=== PATIENT | female | born 1995 | race American Indian/Alaskan Native ===

== ENCOUNTER 2017-09-29 11:12 | Emergency (ER) | payer OTHER ==
[2017-09-29 11:32] VITALS: BMI 29.7
[2017-09-29 11:39] VITALS: RESP 18; O2SAT 98
[2017-09-29] MEDS ORDERED: Sodium Chloride 0.9% 1,000 ML IV STA (11:55)
--- NOTE | 2017-09-29 11:59 | ED PDOC ---
HPI: General Adult Time Seen by Provider: 09/29/17 11:49 Chief Complaint (Nursing): Dizziness/Lightheaded Chief Complaint (Provider): syncope History Per: Patient Additional Complaint(s): 22-year-old female presents to emergency department with abdominal pain and emesis x 1 last night. Patient woke up today and vomited again but was able to tolerate breakfast this AM. She states she was sitting on the bus this morning when she passed out. She did not fall to the ground or injure her head. She states after passing out the next thing she remembers was arriving at [place] [facility]. Upon arrival patient feels mildly dizzy, complains of mild abdominal pain with slight nausea. She has also had cough, congestion and body aches for the past couple of days. No associated chest pain, shortness of breath or dyspnea on exertion. PMD: in [place] Past Medical History Reviewed: Historical Data, Nursing Documentation, Vital Signs Vital Signs: Last Vital Signs Temp 97 F L 09/29/17 11:36 Pulse 71 09/29/17 11:36 Resp 18 09/29/17 11:36 BP Pulse Ox 98 09/29/17 12:12 - Medical History PMH: No Chronic Diseases - Surgical History Surgical History: Cholecystectomy, (x 1) - Family History Family History: States: No Known Family Hx - Living Arrangements Living Arrangements: With Family - Social History Current smoker - smoking cessation education provided: No Alcohol: None Drugs: Denies - Home Medications Home Medications: Ambulatory Orders Medication Instructions Recorded Oseltamivir Phosphate [Tamiflu] 75 mg PO BID #10 capsule 09/29/17 - Allergies Allergies/Adverse Reactions: Allergies Allergy/AdvReac Type Severity Reaction Status Date / Time ketorolac [From Toradol] AdvReac RASH Verified 09/29/17 11:35 Review of Systems ROS Statement: Except As Marked, All Systems Reviewed And Found Negative Constitutional: Positive for: Chills, Other (body aches). Negative for: Fever, Weakness Cardiovascular: Negative for: Chest Pain, Palpitations Respiratory: Positive for: Cough Gastrointestinal: Positive for: Nausea, Vomiting, Abdominal Pain. Negative for : Diarrhea Genitourinary Female: Negative for: Dysuria Neurological: Positive for: Other (syncopal episode). Negative for: Headache Physical Exam - Reviewed Nursing Documentation Reviewed: Yes Vital Signs Reviewed: Yes - Physical Exam Appears: Positive for: Well, Non-toxic, No Acute Distress Skin: Negative for: Rash Eye Exam: Positive for: Normal appearance, EOMI, PERRL ENT: Positive for: Normal ENT Inspection Cardiovascular/Chest: Positive for: Regular Rate, Rhythm Respiratory: Positive for: Normal Breath Sounds Gastrointestinal/Abdominal: Positive for: Tenderness (mild to LUQ, no rebound, guarding or distention) Back: Negative for: L CVA Tenderness, R CVA Tenderness Extremity: Negative for: Pedal Edema Neurologic/Psych: Positive for: Alert, rfid technician II-XII (grossly intact), Oriented. Negative for: Motor/Sensory Deficits, Aphasia, Facial Droop - Laboratory Results Result Diagrams: 09/29/17 12:14 09/29/17 12:14 Urine POC: Negative - ECG Interpretation Of ECG: Sinus bradycardia 59 bpm, no acute finding, reviewed by PA O2 Sat by Pulse Oximetry: 98 Pulse Ox Interpretation: Normal - Other Rad Abd US X-Ray: Read By Radiologist X-Ray Interpretation: no acute finding Medical Decision Making Medical Decision Makin-year-old female with flu like symptoms, abdominal pain and vomiting status post syncopal episode this morning Plan: EKG CBC CMP Trop Urine dip and IVF IV zofran PO tylenol Patient feels much better after medications administered. She is now tolerating liquids and ED. Patient is aware of all diagnostic testing results, all questions answered. Patient was treated empirically for flulike symptoms, prescription given for Tamiflu, advised NSAIDs as needed for fever and bodyaches , rest and fluids. Patient was instructed to follow-up with primary doctor in 2- 3 days. Disposition - Clinical Impression Clinical Impression: Syncope, Flu-like symptoms - Patient ED Disposition Is Patient to be Admitted: No Counseled Patient/Family Regarding: Studies Performed, Diagnosis, Need For Followup, Rx Given - Disposition Referrals: [facility] [Outside] Disposition: Routine/Home Disposition Time: 15:14 Condition: STABLE Additional Instructions: Take prescription medications as directed. Take [id number] Tylenol and ibuprofen as needed for fever and body aches. Rest and drink plenty of fluids. Follow-up with primary doctor in 2-3 days. Prescriptions: Oseltamivir Phosphate [Tamiflu] 75 mg PO BID #10 capsule Instructions: Syncope (Fainting), Flu, Adult (DC) Forms: [employer] (Ch[place]an), [facility] ED School/Work Excuse Results - Lab Results Lab Results: 09/29/17 09/29/17 09/29/17 12:14 12:14 12:14 WBC 5.2 RBC 4.57 Hgb 13.9 Hct 41.9 MCV 91.6 MCH 30.3 MCHC 33.1 RDW 13.7 Plt Count 281 MPV 8.0 Neut % (Auto) 55.8 Lymph % (Auto) 32.3 [place] % (Auto) 8.9 Eos % (Auto) 1.9 Baso % (Auto) 1.1 Neut # (Auto) 2.9 Lymph # (Auto) 1.7 [place] # (Auto) 0.5 Eos # (Auto) 0.1 Baso # (Auto) 0.1 Sodium 142 Potassium 4.0 Chloride 102 Carbon Dioxide 27 Anion Gap 17 BUN 15 Creatinine 0.7 Est GFR ( Amer) > 60 Est GFR (Non-Af Amer) > 60 POC Glucose (mg/dL) Random Glucose 89 Calcium 9.5 Total Bilirubin 0.8 AST 29 ALT 25 Alkaline Phosphatase 75 Troponin I < 0.0120 Total Protein 9.1 H Albumin 4.8 Globulin 4.3 H Albumin/Globulin Ratio 1.1 Urine Color Yellow Urine Clarity Slighty-cloudy Urine pH 6.0 Ur Specific [place] 1.027 Urine Protein Negative Urine Glucose (UA) Neg Urine Ketones Negative Urine Blood Negative Urine Nitrate Negative Urine Bilirubin Negative Urine Urobilinogen 2.0 H Ur Leukocyte Esterase Trace Urine RBC (Auto) 4 H Urine Microscopic WBC 1 Ur Squamous Epith Cells 8 H Urine Bacteria Rare 09/29/17 11:56 WBC RBC Hgb Hct MCV MCH MCHC RDW Plt Count MPV Neut % (Auto) Lymph % (Auto) [place] % (Auto) Eos % (Auto) Baso % (Auto) Neut # (Auto) Lymph # (Auto) [place] # (Auto) Eos # (Auto) Baso # (Auto) Sodium Potassium Chloride Carbon Dioxide Anion Gap BUN Creatinine Est GFR ( Amer) Est GFR (Non-Af Amer) POC Glucose (mg/dL) 83 Random Glucose Calcium Total Bilirubin AST ALT Alkaline Phosphatase Troponin I Total Protein Albumin Globulin Albumin/Globulin Ratio Urine Color Urine Clarity Urine pH Ur Specific [place] Urine Protein Urine Glucose (UA) Urine Ketones Urine Blood Urine Nitrate Urine Bilirubin Urine Urobilinogen Ur Leukocyte Esterase Urine RBC (Auto) Urine Microscopic WBC Ur Squamous Epith Cells Urine Bacteria
[2017-09-29 12:25] LABS: BASO # 0.1 K/uL (0.0-0.2); BASO % 1.1 % (0.0-2.0); EOS # 0.1 K/uL (0.0-0.7); EOS % 1.9 % (0.0-4.0); HEMOGLOBIN 13.9 g/dL (12.0-16.0); LYMPH # 1.7 K/uL (1.0-4.3); LYMPH % 32.3 % (20.0-40.0); MEAN CELL VOLUME 91.6 fl (81.0-99.0); MEAN CORPUSCULAR HEMOGLOBIN 30.3 pg (27.0-31.0); MEAN CORPUSCULAR HGB CONC 33.1 g/dL (33.0-37.0); MONO # 0.5 K/uL (0.0-0.8); MONO % 8.9 % (0.0-10.0); NEUT # 2.9 K/uL (1.8-7.0); NEUT % 55.8 % (50.0-75.0); NRBC % 0.2 % (0.0-0.0); RBC 4.57 Mil/uL (3.80-5.20); RED CELL DISTRIBUTION WIDTH 13.7 % (11.5-14.5); WHITE BLOOD COUNT 5.2 K/uL (4.8-10.8)
[2017-09-29 12:40] LABS: SQUAMOUS EPITHIAL 8 /hpf (0-5); URINE BACTERIA RARE (<OCC); URINE BILIRUBIN NEGATIVE (NEGATIVE); URINE BLOOD NEGATIVE (NEGATIVE); URINE CLARITY SLIGHTY-CLOUDY (Clear); URINE COLOR YELLOW (YELLOW); URINE GLUCOSE (UA) NEG (Normal); URINE LEUKOCYTE ESTERASE TRACE Leu/uL (Negative); URINE NITRATE NEGATIVE (NEGATIVE); URINE PROTEIN NEGATIVE (NEGATIVE)
[2017-09-29 12:52] LABS: ALB/GLOB RATIO 1.1 (1.0-2.1); ALBUMIN 4.8 g/dL (3.5-5.0); ALT/SGPT 25 U/L (9-52); AST/SGOT 29 U/L (14-36); BLOOD UREA NITROGEN 15 mg/dl (7-17); CALCIUM 9.5 mg/dL (8.4-10.2); GFR AFRICAN-AMERICAN > 60; GFR NON-AFRICAN AMERICAN > 60
--- NOTE | 2017-09-29 13:52 | US ---
HISTORY: Abdominal pain, vomiting COMPARISON: None. TECHNIQUE: Sonographic evaluation of the abdomen. FINDINGS: LIVER: Measures 14.1 cm. Patent portal vein. Portal venous flow: Hepatopetal. Unremarkeable echogenicity of the liver parenchyma. No mass. No intrahepatic bile duct dilatation. GALLBLADDER: Status post cholecystectomy. No abnormality is seen in the gallbladder fossa. COMMON BILE DUCT: Measures 5.2 mm. No stones. No dilatation. PANCREAS: Unremarkable as visualized. No mass. No ductal dilatation. RIGHT KIDNEY: Measures 5.6 x 4.6 x 11.4cm. Normal echogenicity. No calculus, mass, or hydronephrosis. LEFT KIDNEY: Measures 5.5 x 5.4 x 10.2cm. Normal echogenicity. No calculus, mass, or hydronephrosis. Incidental finding(s): Upper pole simple cysts 1.5 x 1.9 cm. SPLEEN: Normal in size and contour. No mass. AORTA: No aneurysmal dilatation. IVC: Unremarkable. OTHER FINDINGS: None. IMPRESSION: No significant or acute findings to account for/ related to the clinical presentation. Additional benign and/or incidental findings described above.
[2017-09-29 15:27] VITALS: BP 128/78; PULSE 78; TEMP 97.6
--- NOTE | 2017-09-30 19:15 | CARD ---
APPROVED REPORT EKG Measurement Heart [id number] <Conclusion> Sinus bradycardia Otherwise normal ECG
== END 2017-09-29 15:36 | disposition home or self-care (01) ==
LOC: H.ER 11:12
DX: R55 Syncope and collapse (principal); J11.1 Influenza due to unidentified influenza virus with other respiratory manifestations
CPT/HCPCS: 76700; 80053; 81003; 81025; 82948; 84484; 85025; 87086; 93005; 96374; 99284; J2405; J7040